=== PATIENT | female | born 1995 | race Two or more races ===

== ENCOUNTER → 2019-03-25 | Outpatient (REF) | payer OTHER ==
[2019-03-25 23:02] LABS: CHLAMYDIA DNA AMPLIFICATION NEGATIVE (NEGATIVE); GC DNA AMPLIFICATION NEGATIVE (NEGATIVE)
== END ==
LOC: M SFHCLERA 12:23
PROVIDERS: ATTEND Nurse Practitioner Family
DX: N89.8 Other specified noninflammatory disorders of vagina (principal)
CPT/HCPCS: 81002; 81025; 87070; 87086; 87661; G0463

== ENCOUNTER 2020-02-14 21:30 | Outpatient (CLI) | payer OTHER ==
[~2020-02-14] VITALS: Ht 157.5 cm; Wt 82.5 kg
[2020-02-14 21:52] VITALS: BP 124/74
== END 2020-02-14 22:50 | disposition home or self-care (01) ==
LOC: M LDO 21:30
DX: O47.1 False labor at or after 37 completed weeks of gestation (principal); Z3A.40 40 weeks gestation of pregnancy
CPT/HCPCS: 59025; G0378; G0463

== ENCOUNTER 2020-02-15 00:34 | Inpatient (IN) | payer OTHER ==
[~2020-02-15] VITALS: Ht 157.5 cm; Wt 82.5 kg
[2020-02-15] MEDS ORDERED: OXYTOCIN 30 UNITS IN 0.9% NaCl 500ML IV BAG (J2590) As Ordered ONE (00:48)
[2020-02-15 01:00] LABS: HEMATOCRIT 38.2 % (36.0-47.0); HEMOGLOBIN 12.8 g/dl (12.0-15.5); MEAN CORPUSCULAR HEMOGLOBIN 32.2 pg (27.0-33.0); MEAN CORPUSCULAR HGB CONC 33.5 g/dl (32.0-36.5); MEAN CORPUSCULAR VOLUME 96.2 fl (80.0-96.0); PLATELET COUNT, AUTOMATED 183 10^3/uL (150-450); RED BLOOD COUNT 3.97 10^6/uL (4.00-5.40); WHITE BLOOD COUNT 14.6 10^3/uL (4.0-10.0)
--- NOTE | 2020-02-15 02:28 | HPEPDOC ---
Obstetrical History & Physical General Date of Admission Feb 15, 2020 at 00:48 History of Present Illness Patient represents to L&D 2 hours after disposition home for false labor complaining of worsening ctx's, light VB, and thinking her water broke. Denies DFM. Chief Complaint: Active Labor Information Provided By: Patient Age: 24 : 1 Care Care: Good Care Dating Final EDC: Feb 14, 2020 Final EDC for Daily Update: Feb 14, 2020 Final EDC by: LMP LMP: May 01, 2019 EGA at Admission: 40 (+1) Antepartum Course Diagnos(e)s Late transfer of care at 30weeks Anemia of Excessive weight gain in Height (inches): 62 Pre- weight (lbs.): 135 Admission Weight (lbs.): 182 Change in Weight (lbs.): 47 Past Medical History Past Obstetrical History : Past Obstetrical History: Primgravida [employer]ER History: No pertinent history Past Medical History Medical History Denies Surgical History: Denies/None Family History Significant Family History: Diabetes, Hypertension Social History Marital Status: Family situation: Spouse/partner home Psychosocial History: No pertinent psych hx * Smoker: non-smoker Alcohol: Denies Drugs: denies Abuse Violence Screening Have you been hit/kicked/slapp: No Have you been sexually assault: No Imunizations Tdap status: current ([id number]) Allergies Coded Allergies: No Known Allergies (Unverified , 02/15/20) Physical Examination Physical Examination GENERAL: Alert and oriented times three. ABDOMEN: Gravid and non-tender to touch. FETUS: Is vertex (VTX) by sterile vaginal examination (SVE), fetus is vertex (VTX) by Brian. CARDS: well-perfused LUNGS: no exaggerated respiratory effort appreciated EXTREMITIES: No edema.No calf tenderness SVE: NEFG, c/c/+1 with membranes palpated Laboratory Data 24H LABS Laboratory Tests 2 02/15/20 00:53: Nucleated Red Blood Cells % (auto) 0.0 CBC/BMP Laboratory Tests 02/15/20 00:53 Urine Culture: No Growth Pertinent Laboratoy Data Blood Type: O+ RBC Antibody Screen: Negative HIV: Negative Hepatitis B: Negative Rapid Plasma Reagin: Nonreactive Rubella: Immune Varicella: Nonreactive Chlamydia/Gonorrhea: Negative Group B Streptococcus: Negative Anatomy Ultrasound Ultrasound Date: September 15, 2019 Placenta Location: Posterior Normal Anatomy: Yes Estimated Weight (grams): 238 Other Ultrasounds [id number] - remainder of anatomy scan completed and normal. EFW 435g at 21w5d Vaginal Examination Dilation: complete Effacement: 100% Station: +1 Cervical Consistency: Soft Cervical Position: Anterior Presentation: Cephalic presentation Assessment Heart Rate (FHR): 130 Variability: Moderate Accelerations: Positive Decelerations: None Tocometer Contractions: Yes Frequency: every 2-5 min. Multi-drug resistant Organism: No history of MDRO Assessment/Plan Assessment 24yo at 40+1wks presenting in active labor and found to be c/c/+1 on admission. GBS neg. Opos blood type. EFW 3000g. Plan Admit and orient. Cash Analyst and consent. Diet: clears as tolerated Group B Streptococcus (GBS) negative. Labs and intravenous (IV) per unit protocol. Lactated Ringers (LR): Bolus 1000 mL, then at 125 mL/hr. Anticipate normal spontaneous delivery (). C-S as appropriate. NELSY ADEN DO Feb 15, 2020 02:28
--- NOTE | 2020-02-15 02:35 | DNPDOC ---
[facility] Delivery Note Delivery Note DATE OF DELIVERY: 02/15/2020 PREDELIVERY DIAGNOSIS: 40+1/7 weeks' gestation and labor. POST DELIVERY DIAGNOSIS: Delivered. PROCEDURE: Spontaneous vaginal delivery. WASHING MACHINE INSTALLER: Dr. Nelsy Aden ANESTHESIA: Epidural ESTIMATED BLOOD LOSS: 50 mL. FINDINGS: 7 pound 7 ounce 3370g male infant, Score 9/9, no nuchal cord, no meconium. Patient delivered encaul. DELIVERY SUMMARY: Roxanne is a 24yo admitted at 40+1wks in active labor at c/c/+1. Patient feeling urge to push and declined epidural. Patient offered pudendal nerve block which was accepted and performed with 10ml of lidocaine 1% to good affect. With excellent maternal effort, spontaneous vaginal delivery of a term, male infant encaul. Presentation was OA with restitution to LOT with right shoulder anterior position. SROM of amniotic sac upon delivery of anterior shoulder. Anterior shoulder and body delivered without difficulty. No nuchal cord or meconium appreciated. with vigorous spontaneous cry on delivery field therefore placed on maternal abdomen to be dried. Pitocin IV bolus initiated. Inspection revealed a 2nd degree perineal laceration that was repaired in routine fashion with 2-0 vicryl with good approximation of tissue and hemostasis. Small bilateral labial hemostatic abrasions were noted that patient declined to have repaired. Three vessel cord clamped x2 and cut by FOB. Third stage spontaneous with intact placenta. Fundal massage revealed firm uterine tone with hemostasis noted. EBL 50ml. Mother and infant stable and bonding upon my leaving the room. NELSY ADEN DO Feb 15, 2020 02:35
[2020-02-15 04:00] VITALS: BP 131/63
[2020-02-15 06:00] VITALS: BP 108/58
[2020-02-15 18:00] VITALS: BP 116/55
[2020-02-16 05:29] VITALS: BP 116/76
--- NOTE | 2020-02-16 06:48 | IPNPDOC ---
Progress Note Date of Service: Feb 16, 2020 Day#: 1 Progress Note SUBJECT: Ms. Díza is a 24yo PPD1 s/p . Breast feeding without issue. Reports lochia is less than normal period. Patient is ambulating well. Denies any pain. Voiding and stooling without difficulty. OBJECTIVE: VITAL SIGNS: Within normal limits, afebrile. Alert and oriented times three. Breath sounds clear to auscultation. Heart rate: Regular rate and rhythm, no murmurs, rubs or gallops. Abdomen: Fundus firm at U-2. Soft, NTTP. Minimal lochia. ASSESSMENT: Ms. Díaz is a 24yo PPD1 s/p . Vitals within normal limits, afebrile, hemodynamically stable with no evidence of infection. She had urinary retention after delivery and is s/p mascorro replacement and removal and has met her DTV. PLAN: 1. Discharge to home likely tomorrow 2. Tylenol and Motrin for pain. 3. Encourage breast feeding and ambulation. 4. undecided for BC, educated on options and risk of close interval 5. Routine PP visit in 6 weeks in clinic. 6. Discussed return precautions at length. 7. Will continue to closely monitor UOP VS, I&O, 24H, Fishbone Vital Signs/I&O Vital Signs Date Time Temp Pulse Resp B/P (MAP) Pulse Ox O2 Delivery O2 Flow Rate FiO2 02/16/20 05:29 98.0 98 16 116/76 (89) 98 Room Air I&O- Last 24 Hours up to 6 AM 02/16/20 05:59 Output Total 2710 ml Balance -2710 ml KWAME YEE DO Feb 16, 2020 06:47
[2020-02-16 18:00] VITALS: BP 127/66
[2020-02-17 06:00] VITALS: BP 121/64
[2020-02-17] MEDS ORDERED: medroxyPROGESTERone ACET IM SUSP 150 MG/ML VIAL (J1050) IM SCH (06:30)
[2020-02-17] MEDS ORDERED: IBUP80TA PO (06:31)
[2020-02-17] MEDS ORDERED: DIBU10OI TOP (06:31)
[2020-02-17] MEDS ORDERED: DOCU100C16 PO (06:31)
[2020-02-17 18:00] VITALS: BP_SYST 110; BP_SYST 132; BP_DIAS 63; BP_DIAS 72
[2020-02-18 05:27] VITALS: BP 110/57
--- NOTE | 2020-02-18 13:03 | IPNPDOC ---
Progress Note Date of Service: Feb 18, 2020 Day#: 2 Progress Note SUBJECT: Roxanne is a 24-year-old 1 now Para 1 status post uncomplicat ed spontaneous vaginal delivery at 40wks. She has been ambulating, voiding spontaneously without issue and tolerating regular diet. She and reports it is going well. Reports lochia is decreasing. Reports pain is well- controlled on oral pain meds. OBJECTIVE: VITAL SIGNS: Within normal limits, afebrile. Alert and oriented times three. No exaggerated respiratory effort appreciated Well-perfused Abdomen: Fundus firm at U-2. Soft, NTTP. Scant lochia on peripad Extremities without edema, no calf tenderness ASSESSMENT: Roxanne is a 24-year-old 1 now Para 1 status post uncomplicated spontaneous vaginal delivery at 40wks. Patient doing well on day 2. Vitals within normal limits, afebrile, hemodynamically stable with no evidence of infection. PLAN: 1. Discharge to home today. 2. Continue current pain mgmt. 3. Encourage breast feeding and ambulation. 4. Encourage regular diet as tolerated 5. Patient to f/u for routine PP visit in 6 weeks. 6. Discussed return precautions at length. VS, I&O, 24H, Fishbone Vital Signs/I&O Vital Signs Date Time Temp Pulse Resp B/P (MAP) Pulse Ox O2 Delivery O2 Flow Rate FiO2 02/18/20 05:27 98.2 87 18 110/57 (74) 02/17/20 18:00 99 02/17/20 06:00 Room Air NELSY ADEN DO Feb 18, 2020 13:03
--- NOTE | 2020-02-23 09:37 | DS ---
DATE OF ADMISSION: 02/15/2020 DATE OF DISCHARGE: This lady is a 24-year-old 1 now para 1 who was admitted with contractions at 40 weeks of gestation. Spontaneous vaginal delivery of a male weighing 7 pounds 7 ounces (3370 grams); Apgars of 9 and 9 at one and five minutes respectively. She had a pudendal nerve block. She sustained a second-degree tear which was repaired in the usual fashion. On her day three, d we discussed phlebitis, cystitis, mastitis, endometritis, and cellulitis; diet, exercise, pain management, perineal, breast, and wound care. Presently, the baby is under lights because the bilirubin is rising. We are waiting for the bilirubin to come down to a reasonable level so the baby can be circumcised. Her blood pressure today is 121/64, respirations 18, pulse 84, temperature 97.6. Her admitting hemoglobin was 12.8, hematocrit 38.2 and platelets were 183. We discussed phlebitis, cystitis, mastitis, endometritis, and cellulitis; diet, exercise, pain management, perineal, breast, and wound care. The rest of the examination is unremarkable. Normocephalic, atraumatic. Neck: Full range of motion. Pupils equal and reactive to light. Distal pulses symmetric. No evidence of deep vein thrombosis (DVT), pulmonary embolus (PE) or superficial phlebitis. Chest is clear bilaterally to the bases; no wheezes or rhonchi. No CVA tenderness. Abdomen was soft, four-quadrant bowel sounds are noted. Uterus 2 below, perineum is healing. She has no urgency, frequency; no nausea, vomiting, diarrhea or constipation. In summary, we have a term gestation delivered a live- male . Discharged to boarder status. We await clearance by the cigarette machine filler for circumcision. Baby's bilirubin needs to come down. All questions were answered in 20-minute discussion. [facility]
--- NOTE | 2020-03-03 15:52 | IPN ---
DATE: 02/17/2020 SUBJECTIVE: This patient requested a circumcision of a male infant. After discussing risks and benefits of circumcision, the medical and non-medical indications, the penile block and after care, expressed understanding the penile block after care. All questions were answered, signed the consent form. We await clearance by the carriage operator. GLENIS
== END 2020-02-18 12:25 | disposition home or self-care (01) | DRG 807 ==
LOC: M LDO 00:34 → M LDI 00:48 → M OBS 03:45
PROC: 10E0XZZ Delivery of Products of Conception, External Approach (ICD-10-PCS; principal; 2020-02-15)
DX: O48.0 Post-term pregnancy (principal); Z37.0 Single live birth; Z3A.40 40 weeks gestation of pregnancy